=== PATIENT | male | born 1950 | race Caucasian/White ===

== ENCOUNTER → 2023-06-16 | Outpatient (CLI) | payer MEDICARE, SELFPAY ==
[2023-06-16 08:15] VITALS: PULSE 105; PULSE 106; PULSE 107; PULSE 114; PULSE 118; PULSE 120; PULSE 124; O2SAT 88; O2SAT 90; O2SAT 91; O2SAT 92; O2SAT 94; O2SAT 95
--- NOTE | 2023-06-16 08:45 | CPS ---
pt has pulse dose home oxygen with him. He was placed on that device during test. tolerated well.
--- NOTE | 2023-06-17 09:57 | PCM.PSN.6M ---
PSN 6 Minute Walk Test 6 Minute Walk Test 6 Minute Walk Test: 6 Minute Walk Test PSN:6-Minute Walk Test Start: 06/16/23 08:34 Freq: Status: Active Protocol: [id number] Document 06/16/23 08:15 EW (Rec: 06/16/23 08:46 EW Desktop) 6 Minute Walk Test Date Performed 06/16/23 Time Performed 08:15 Height 6 ft Weight: 252 lb Weight in Pounds 252.[address]: Zaki Andrew Assistive device used: None Pre-test Oxygen Delivery Method Room Air Pulse Ox 94 Pulse Rate (60-100) 107 H Dyspnea Laisha Scale (0-10) 2 Exertion Laisha Scale (6-20) 6 1st minute Oxygen Delivery Method Room Air Pulse Ox 92 Pulse Rate (60-100) 114 H 2nd minute Oxygen Delivery Method Room Air Pulse Ox 88 Pulse Rate (60-100) 120 H Number of Rests Taken 1 Reported Symptoms Increased Work of Breathing 3rd minute Oxygen Flow Rate (L/min) 2 Oxygen Delivery Method Nasal Cannula Pulse Ox 92 Pulse Rate (60-100) 124 H 4th minute Oxygen Flow Rate (L/min) 2 Oxygen Delivery Method Nasal Cannula Pulse Ox 92 Pulse Rate (60-100) 124 H 5th minute Oxygen Flow Rate (L/min) 2 Oxygen Delivery Method Nasal Cannula Pulse Ox 90 Pulse Rate (60-100) 105 H 6th minute Oxygen Flow Rate (L/min) 2 Oxygen Delivery Method Nasal Cannula Pulse Ox 91 Pulse Rate (60-100) 106 H Post-test Oxygen Flow Rate (L/min) 2 Oxygen Delivery Method Nasal Cannula Pulse Ox 95 Pulse Rate (60-100) 118 H Dyspnea Laisha Scale (0-10) 3 Exertion Laisha Scale (6-20) 13 Full Laps Walked 16 Partial Lap, Number of Tiles Walked 22 Total Distance Walked (ft) 966 06/16/23 08:45 Cardiopulmonary Services by Francie Mane pt has pulse dose home oxygen with him. He was placed on that device during test. tolerated well. Initialized on 06/16/23 08:45 - END OF NOTE Interpretation Interpretation: The patient ambulated 966 feet over the course of 6 minutes beginning on room air without assistive devices. Pretesting oxygen saturation was noted to be 94% on room air. With ambulation, the patient desaturated to 88%, requiring 2 L/min of pulsed dose oxygen to maintain saturations. Recommendations Recommendations: 2 L/min of pulse dose supplemental oxygen should be utilized with exertion.
== END | disposition home or self-care (01) ==
LOC: PSN 08:10
PROVIDERS: PCP Family Medicine; Referring Provider Internal Medicine Critical Care Medicine; Visit Provider Internal Medicine Critical Care Medicine
DX: J44.9 Chronic obstructive pulmonary disease, unspecified (principal)
CPT/HCPCS: 94618